=== PATIENT | female | born 1995 | race Caucasian/White ===

== ENCOUNTER 2016-10-26 01:56 | Emergency (ER) | payer OTHER ==
[~2016-10-26 01:56] MED LIST: DICY20TA10 PO
[2016-10-26 01:59] VITALS: BP 128/85; PULSE 74; RESP 14
--- NOTE | 2016-10-26 02:10 | ED.REPORT ---
HPI-Extremity Problem Upper Date of Service Oct 26, 2016 ED Provider: Ruslan Leonardo MD Patient is a 21 year old female who presents to the ED with a laceration to her right hand that she sustained 1.5 hours prior to arrival. She sustained the injury on a piece of glass and is concerned that there may be some glass in her wound. Patient reports associated pain and swelling. She denies numbness or weakness of her fingers. The patient did not sustain any other injuries. Tetanus is up to date. Nursing Notes Stated Complaint: LACERATION ON HAND Chief Complaint: Laceration Nursing Notes Reviewed: Yes Allergies: Coded Allergies: shellfish derived (Verified Allergy, Severe, Hives, 10/26/16) Scheduled PRN Dicyclomine (Dicyclomine) 20 Mg Tablet 20 MG PO QID PRN PRN For GI Cramps General Time Seen by MD: 02:08 Chief Complaint Hand injury right Hx Obtained From: Patient Arrived By: Walk-in Onset Occurred: 1 - 4 hours ago Symptom Duration: Since onset Caused by: Accidental Location: : Hand right Quality: Painful Severity: Current: Moderate Severity: Maximum: Moderate Recent Healthcare: No recent doctor visit, No recent hospitalization Similar Sx Previous: No Past Medical History Past Medical History IBS history of intentional drug overdose Past Surgical History none reported Smoking History Never Smoker Social History Alcohol Use: Denies alcohol use Drug Use: Denies drug use Other Social History: Good social support, Local resident Ambulatory Status Independent Review of Systems Musculoskeletal: Reports: Extremity pain, Extremity swelling Neurologic: Denies: Numbness, Weakness Complete sys rev & neg: except as marked. Hematologic: Reports Bleeding (laceration), Denies Bruising Physical Exam Initial Vital Signs Vital Signs (First) Date Time Temp Pulse Resp B/P Pulse Ox O2 Delivery O2 Flow Rate FiO2 10/26/16 01:59 36.3 74 14 128/85 10/26/16 02:52 99 Room Air Initial VS: Reviewed Head / Eyes: Atraumatic, Normocephalic, PERRL ENT: Conjunctiva normal, No scleral icterus Neck: Supple, Full range of motion Skin: Warm, Dry, No cyanosis Neurologic: Alert, Oriented, Nonfocal Psychiatric: Mood/affect normal, Behavior normal, Normal thought content General/Constitutional: Awake, Alert, No acute distress Respiratory / Chest: No respiratory distress, No stridor Cardiovascular: Heart rate NL, Cap refill not delayed, Peripheral circulation NL Upper Extremity / MS: Neurologic intact, Vascular intact Wrist / Hand: Neurologic intact, Vascular intact Trauma / Burn / Environmental: Positive: Laceration (1.5cm flap laceration to the right palm surface. Extends down to the subQ tisse with slight undermining) Interpretation & Diagnostics X-Ray Interpretation Xray Interpretation: Impression: No foreign body. No acute process. X-Ray Ordered: Hand right Interpretation / Wet Read by: Wet read ED physician Procedures Laceration Management Time: 02:30 Procedure Performed by: ED physician Consent / Setup / Site Prep: Consent from patient, Time-out performed, Hand hygiene observed, Stand sterile technique Location of Wound: palm, right hand Wound Length: 1 cm (1.5 cm) Local Anesthesia: Lidocaine 1% Digital Block: No Wound Preparation: Other (dermal wound cleanser) Debridement: None Irrigation: Copious Foreign Body Explore / Removal: Explored for foreign body Undermining / Margins: Undermining minimal Repair Skin: Nylon (4-0) # Sutures - Skin: 3 Closure Layers: 1 Suture Technique: Simple (2x), Mattress (1x horizontal mattress) Post-Procedure / Complications: Antibiotic oint applied, Dressing applied, No complications, Condition improved, Tolerated procedure well, Patient stable Re-Eval/Medical Decision Med Decision/Clinical Course 21-year-old presents for laceration sustained on glass tonight at work. No foreign body by x-ray and none found on exploration of the wound. Closed with horizontal mattress and two simple sutures after routine prep and lavage. She is discharged in stable condition. Source of Hx: Old records Re-Evaluation/Progress : Time of Eval: 02:45 Patient Status: Condition improved Re-Evaluation/Progress Note: Laceration repaired. Patient understands and agrees with the plan to be discharged home. Discharge instructions and follow-up discussed. All questions were addressed. Return to the ED warnings given. Counseled Regarding: Diagnosis, Need for follow-up, When/why to return to ED Discharge & Departure Impression: Primary Impression: Laceration of right hand Encounter type: initial encounter Qualified Code: S61.411A - Laceration without foreign body of right hand, initial encounter Disposition: Home Discharge Condition All VS Reviewed: Yes Condition: Stable Patient Instructions: Laceration (ED), Suture Care (ED) Additional Instructions: Bacitracin ointment three times daily to cut until sutures are removed. Return here a week from Thursday for suture removal. Keep this clean and dry otherwise. He may wash it three or four times daily and then redressed with bacitracin after. Keep it covered with ointment and clean gauze. Return if any signs of infection or other symptoms of concern. Referrals: Christie Goldman PA-C (PCP) [facility] Attestation Portions of this note were transcribed by Sofia Hernandez. I, Dr. Leonardo personally performed the history, physical exam and medical decision-making; I reviewed and confirmed the accuracy of the information in the transcribed note. Signed by: Marcelo Elkins, 10/26/2016 0250 copies to: Christie Goldman PA-C, Christopher W MD Oct 26, 2016 02:10 Sofia Hernandez Oct 26, 2016 02:15
[2016-10-26 02:52] VITALS: BP 128/82; PULSE 72; RESP 16; O2SAT 99
--- NOTE | 2016-10-26 07:41 | DRSVH ---
PROCEDURE: X-RAY RIGHT HAND, TWO VIEWS ([id number]) INDICATIONS: lac poss glass fb TECHNIQUE: 2 views of the hand(s) acquired. COMPARISON: None. FINDINGS: Bones: No fractures or dislocations. Carpal bones are normally aligned. No suspicious bony lesions . Soft tissues: No suspicious soft tissue calcifications. IMPRESSION: No radiopaque foreign body. No acute fracture. No osseous lesion. If clinical suspicion and/or symptoms persist, further assessment with repeat plainfilms, or advanced imaging (e.g., CT, MR I, or bone scan) may be helpful for further assessment. Dictated by: Fernando Moss M.D. on 10/26/2016 at 7:38 Approved by: Fernando Moss M.D. on 10/26/2016 at 7:39
== END 2016-10-26 02:53 | disposition home or self-care (01) ==
LOC: SED 01:56
DX: S61.411A Laceration without foreign body of right hand, initial encounter (principal); W25.XXXA Contact with sharp glass, initial encounter; Y93.9 Activity, unspecified; Y99.8 Other external cause status; Y92.9 Unspecified place or not applicable